=== PATIENT | male | born 1995 | race Asian ===

== ENCOUNTER 2022-05-17 09:15 | Emergency (ER) | payer OTHER ==
[2022-05-17 09:44] LABS: BASOPHILS % (AUTO) 0.9 %; EOSINOPHILS # (AUTO) 0.1 10^3/uL (0.0-0.7); EOSINOPHILS % (AUTO) 2.2 %; HCT - HEMATOCRIT 43.3 % (42.0-52.0); HGB - HEMOGLOBIN 14.7 g/dL (14.0-18.0); LYMPHOCYTES # (AUTO) 1.9 10^3/uL (1.5-3.5); LYMPHOCYTES % (AUTO) 41.9 %; MEAN CORPUSCULAR HEMOGLOBIN 30.3 pg (27.0-31.0); MEAN CORPUSCULAR HGB CONC 33.9 g/dL (32.0-36.0); MEAN CORPUSCULAR VOLUME 89.3 fL (80.0-94.0); MEAN PLATELET VOLUME 10.1 fL (7.4-11.4); MONOCYTES # (AUTO) 0.3 10^3/uL (0.0-1.0); MONOCYTES % (AUTO) 6.1 %; NEUTROPHILS # (AUTO) 2.2 10^3/uL (1.5-6.6); NEUTROPHILS % (AUTO) 48.7 %; PLT - PLATELET COUNT 213 10^3/uL (130-450); RED BLOOD COUNT 4.85 10^6/uL (4.70-6.10); RED CELL DISTRIBUTION WIDTH 12.7 % (12.0-15.0); WHITE BLOOD COUNT 4.6 x10^3/uL (4.8-10.8)
--- NOTE | 2022-05-17 09:55 | XRAY Report ---
PROCEDURE: Chest 1 View X-Ray INDICATIONS: Chest pain TECHNIQUE: One view of the chest was acquired. COMPARISON: None. FINDINGS: Surgical changes and devices: None. Lungs and pleura: No pleural effusions or pneumothorax. Lungs are clear. Mediastinum: Mediastinal contours appear normal. Heart size is normal. Bones and chest wall: No suspicious bony lesions. Overlying soft tissues appear unremarkable. IMPRESSION: No acute cardiopulmonary disease. Reviewed by: Ruth Zamora MD on 05/17/2022 8:[address] Approved by: Ruth Zamora MD on 05/17/2022 8:53 AM [place] Station ID: [id number]
[2022-05-17 09:57] LABS: ALBUMIN 4.3 g/dL (3.2-5.5); ALBUMIN/GLOBULIN RATIO 1.6 (1.0-2.2); BILIRUBIN,TOTAL 0.6 mg/dL (0.2-1.0); CALCIUM 8.7 mg/dL (8.5-10.3); POTASSIUM 3.7 mmol/L (3.5-5.0)
--- NOTE | 2022-05-17 09:57 | ED Physician Documentation ---
PD HPI CHEST PAIN - Stated complaint Stated Complaint: CHEST PX - Chief complaint Chief Complaint: Cardiac - History obtained from History obtained from: Patient - History of Present Illness Timing - onset: How many weeks ago (has had some palpitations for several weeks to a month. Onset when started Prazosin for sleep/anxiety. they leveled some. Noted mainly at night/at rest. No chest pain nor exertional dyspnea prior to the medication. Exercises regularly. Had increase of palpitations 2 weeks ago when dose increased.), Other (he lowered dose back down to prior but the degree of palpiations remains. he called his psychiatrist office for advise/med change and nurse told him to go to the ER.) Timing - onset during: Sleep, Rest. No: Exertion (but has noted mild CLINE the past month or so. NO edema.) Timing - details: Gradual onset, Still present Quality: No: Pressure, Tightness Location: Substernal Worsened by: No: Exertion Associated symptoms: Palpitations Review of Systems Constitutional: denies: Fever, Chills Nose: denies: Rhinorrhea / runny nose, Congestion Throat: denies: Sore throat Cardiac: reports: Palpitations. denies: Chest pain / pressure, Pedal edema, Calf pain Respiratory: reports: Dyspnea. denies: Cough, Wheezing PD PAST MEDICAL HISTORY - Past Medical History Cardiovascular: None Respiratory: None Endocrine/Autoimmune: None Psych: Anxiety, Post traumatic stress disorder - Allergies Allergies/Adverse Reactions: Allergies Allergy/AdvReac Type Severity Reaction Status Date / Time No Known Drug Allergies Allergy Verified 05/17/22 09:21 PD ED PE NORMAL - Vitals Vital signs reviewed: Yes - General General: Alert and oriented X 3, No acute distress, Well developed/nourished - Neck Neck: Supple, no meningeal sign, No adenopathy - Cardiac Cardiac: RRR, No murmur - Respiratory Respiratory: No respiratory distress, Clear bilaterally - Derm Derm: Normal color, Warm and dry - Extremities Extremities: No edema, No calf tenderness / cord Results - Vitals Vitals: Vital Signs - 24 hr 05/17/22 10:30 Heart Rate 70 Respiratory 17 Rate Blood Pressure 127/59 L O2 Saturation 98 Oxygen O2 Source Room air - EKG (time done) 09:25 EKG releavant findings:: EKG personally interpreted by author of this note. Relevant findings are: Rate: Rate (enter#) (80) Rhythm: NSR [place]: Normal Intervals: Normal SC QRS: Normal Ischemia: Normal ST segments. No: ST elevation c/w ischemia, ST depression Other comments: Other comments (artifact baseline in lead V2 only. otherwise normal. ) Compare to prior EKG: Old EKG unavailable - Labs Labs: Laboratory Tests 05/17/22 05/17/22 05/17/22 09:38 09:38 09:38 WBC 4.6 L RBC 4.85 Hgb 14.7 Hct 43.3 MCV 89.3 MCH 30.3 MCHC 33.9 RDW 12.7 Plt Count 213 MPV 10.1 Neut # (Auto) 2.2 Lymph # (Auto) 1.9 [place] # (Auto) 0.3 Eos # (Auto) 0.1 Baso # (Auto) 0.0 Absolute Nucleated RBC 0.00 Nucleated RBC % 0.0 Sodium 140 Potassium 3.7 Chloride 109 Carbon Dioxide 25 Anion Gap 6.0 BUN 22 H Creatinine 1.0 Estimated GFR (MDRD) 90 Glucose 77 Calcium 8.7 Total Bilirubin 0.6 AST 21 ALT 19 Alkaline Phosphatase 40 L Troponin I High Sens 2.9 Total Protein 7.0 Albumin 4.3 Globulin 2.7 Albumin/Globulin Ratio 1.6 Lipase 38 - Rads (name of study) chest xray Relevant Findings:: Prelim report reviewed, EMP independent interpretation of test (no acute process noted), See rad report PD Medical Decision Making - ED course Complexity details: reviewed results (ECG is normal. Chemistry especially Potassium and calcium are checked and reviewed. K low normal 3.7; could increase it in lieu of palpitations. ), considered differential (feeling of increasing palpitations the past few weeks, increased more the past few days. No chest pain per se. He feels is side effect of Prazosin, as onset when started it and worse when increased dose. Has not improved with lowering dose back. The prazosin has helped his night anxiety/sleep though), d/w patient Social Determinants of Health: patient says it is fairly easy to contact his psychiatrist and can work on med change with that person. Departure - Departure Disposition: 01 Home, Self Care Clinical Impression: Palpitations, Medication side effect Condition: Stable Record reviewed to determine appropriate education?: Yes Instructions: ED Palpitations, ED Diet High Potassium Comments: It is reasonable pole to presume the palpitations and symptoms you are having are a side effect of the prazosin as it is a listed side effect and timed well with your medication. Stop the prazosin. Stay well-hydrated. Continue minimal with caffeine. Your EKG and troponin are normal so no signs of obvious heart inflammation or muscle injury. Your chemistry panel shows normal electrolytes though your potassium is in the low end of normal. Adding potassium supplement or high potassium foods over the next week may help minimize the palpitations as well. You could also take a magnesium supplement and this can help with palpitations as well. I would assume them to decrease in diminish over the next several days to a week or so. Contact your psychiatrist to decide which medication to go with next to help with sleep etc. Discharge Date/Time: 05/17/22 11:10
[2022-05-17] MEDS ORDERED: MAGNESIUM OXIDE 400 MG TABLET PO STA (10:49)
[2022-05-17] MEDS ORDERED: POTASSIUM CHLORIDE 20 MEQ TABLET PO STA (10:49)
[2022-05-17 10:58] VITALS: BP 127/59
== END 2022-05-17 11:10 | disposition home or self-care (01) ==
LOC: ED 09:15
DX: R00.2 Palpitations (principal); T44.6X5A Adverse effect of alpha-adrenoreceptor antagonists, initial encounter
CPT/HCPCS: 36415; 71045; 80053; 83690; 84484; 85025; 93005; 99283; 99284; A9270